=== PATIENT | female | born 1940 | race Caucasian/White ===

== ENCOUNTER → 2019-06-23 08:42 | Outpatient (CLI) | payer MEDICARE | END | disposition home or self-care (01) | LOC: D.HCCARDIO 08:30 | PROVIDERS: ATTEND Internal Medicine Interventional Cardiology | DX: I20.9 Angina pectoris, unspecified (principal) ==

== ENCOUNTER → 2019-06-24 10:35 | Outpatient (CLI) | payer MEDICARE ==
--- NOTE | 2019-06-27 14:34 | ST ---
PATIENT:SHAHANA LAMBERT MEDICAL RECORD: [id number] SEX: F LOCATION:[facility] ORDER #: ADMISSION DATE: 06/24/19 AGE OF PATIENT: 79 REFERRING PHYSICIAN: INTERPRETING PHYSICIAN: ELIZABETH DACOSTA MD DATE OF SERVICE: 06/24/2019 PROCEDURE: Nuclear stress test. INDICATION: Angina, shortness of breath, abnormal ECG, and hyperlipidemia. She was exercised on standard Yariel protocol for 5 minutes 30 seconds, terminated due to achievement of greater than 85% max target heart rate response with 31 mCi of sestamibi injected at peak stress, 10 mCi used previously for rest images. FINDINGS: Gated SPECT reveals preserved ejection fraction at 72% with good wall motion and thickening and brightening throughout all segments. SPECT imaging Cardiolite was used as myocardial fusion agent. There is homogeneous uptake throughout all segments at rest and stress with no evidence of inducible ischemia or previous infarction. OVERALL IMPRESSION: 1. This is a normal nuclear stress test with no evidence of inducible ischemia or previous infarction. 2. Gated SPECT reveals a preserved ejection fraction at 72%. In this patient with ongoing symptomatology, the current scan does not suggest the presence of hemodynamically significant coronary artery disease. Evaluate noncardiac etiology of chest pain. 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
--- NOTE | 2019-06-28 14:23 | EC ---
PATIENT:SHAHANA LAMBERT DATE OF SERVICE: 06/24/19 SEX: F MEDICAL RECORD: [id number] DATE OF : 44 LOCATION:[facility] AGE OF PATIENT: 79 ADMISSION DATE: 06/24/19 REFERRING PHYSICIAN: INTERPRETING PHYSICIAN: YAS DUDLEY MD ECHOCARDIOGRAM REPORT ECHO CHARGES 4 ECHO COMPLETE Date: 06/24/19 CLINICAL DIAGNOSIS: DYSPNEA ECHOCARDIOGRAPHIC MEASUREMENTS (adult normal given) AC root (d.<3.7cm) 3.8 cm LV Septum d (<1.2 cm> 1.0 cm Valve Excursion 1.7 cm LV Septum (systole) 1.1 cm Left Atria (s.<4.0cm> 3.8 cm LVPW d(<1.2cm) 1.1 cm RV (d.<2.3cm) 3.8 cm LVPW (sytole) 1.4 cm LV diastole(<5.6CM) 5.4 cm MV E-F(>70mm/sec) cm LV systole 4.0 cm LVOT Diameter 1.9 cm MV exc.(>10mm) 1.8 cm Est.ejection fraction (50-75%) % DOPPLER: LVIT cm/sec A 97.0 cm/sec E 62.0 cm/sec LA cm/sec RVSP 25 mmHg LVOT 98 cm/sec AOP1/2T m/s Asc. Ao 142 cm/sec RVOT 71 cm/sec RA cm/sec PA 96 cm/sec AV Gradient Peak 8.05 mmHg AV Mean 4.77 mmHg AV Area 2.3 cm MV Gradient Peak 4.35 mmHg MV Mean 1.62 mmHg MV Area cm COMMENTS: Reporting Process Consultant: 2 [employer]: 3 Dr. Raman TAPE# PACS Pericardial Effusion N DATE OF SERVICE: Adequate 2D, color flow, spectral Doppler, and M-mode. No LVH. LV internal dimension is normal. Wall motion is normal. EF is greater than equal to 55%. Aortic valve is tricuspid: No stenosis by Doppler interrogation. Left atrium is normal. Mitral valve shows no prolapse. Trace MR. Right-sided chambers grossly normal. Trace TR. TRANSINT:[id number] Voice Confirmation ID: [id number] DOCUMENT ID: [id number] ECHOCARDIOGRAM REPORT [id number] SHAHANA LAMBERT YAS DUDLEY MD at 1423 CC: [id number] DICTATION DATE: 06/27/19 1359 CUSTODIAL LABORER: 06/28/19 0057 DEP CLI 06/24/19 [place] [id number] [place] [address]
== END | disposition home or self-care (01) ==
LOC: D.HCCECHO 10:35
PROVIDERS: ATTEND Internal Medicine Interventional Cardiology
DX: R06.02 Shortness of breath (principal)